=== PATIENT | female | born 1990 | race Caucasian/White ===

== ENCOUNTER → 2016-09-23 | Outpatient (CLI) | payer OTHER ==
[2016-09-23 08:59] LABS: CHOLESTEROL/HDL RATIO 2.6; THYROID STIMULATING HORMONE 0.758 uIu/ml (0.300-4.500)
== END | disposition home or self-care (01) ==
LOC: C.LAB 07:40
PROVIDERS: ATTEND Internal Medicine
DX: Z00.00 Encounter for general adult medical examination without abnormal findings (principal); F98.8 Other specified behavioral and emotional disorders with onset usually occurring in childhood and adolescence; F41.9 Anxiety disorder, unspecified

== ENCOUNTER → 2017-11-03 | Outpatient (CLI) | payer OTHER | END | disposition home or self-care (01) | LOC: C.LABSPEC 08:34 | PROVIDERS: ATTEND Nurse Practitioner | DX: Z13.220 Encounter for screening for lipoid disorders (principal); Z13.1 Encounter for screening for diabetes mellitus ==

== ENCOUNTER 2023-10-29 08:42 | Inpatient (IN) ==
--- NOTE | 2023-10-26 10:00 | Anesthesiology Consultation ---
Date of Service October 26, 2023 Assessment & Plan (1) Encounter for pre-operative examination: Infectious disease screening: Per assessment on 10/26/23: No known recent infectious disease contacts or current infectious disease symptoms. Chart Review Chart Review: entry level receptionist initiated History Surgery Operation Date: 10/29/23 08:50 Proposed Procedures p Section (Delivery of the Baby Through Abdominal Incision) - Sandra Navarrete MD Height/Weight Height: 5 ft 4 in Weight: 89.358 kg Allergies Allergy/AdvReac Type Severity Reaction Status Date / Time peanut Allergy Unknown Gastrointestinal Verified 10/26/23 09:16 Upset No Known Drug Allergies Allergy Verified 10/26/23 09:16 Medications Home Medications Medication Instructions Recorded Confirmed Last Taken valacyclovir 500 mg tablet 500 mg PO BID #60 tabs 10/04/23 10/26/23 Unknown (Valtrex) docosahexaenoic acid 300 mg capsule 0 mg PO DAILY 10/26/23 10/26/23 Unknown Past Medical History Medical History ADD (attention deficit disorder) No meds Breech presentation Reason for c/s per patient History of asthma Childhood "no issue for years" History of COVID-19 ~2021 Past Family History Family History Grandfather (Paternal) Myocardial infarction Grandfather (Maternal) Prostate cancer Denies family history of Ovarian cancer Breast cancer Colorectal cancer Past Surgical History Surgical History No history of previous surgery Social History Smoking Status: Never smoker Do You Dip or Chew Tobacco: No Hx Alcohol Use: Yes (hx social/none while ) Alcohol type: wine Hx Substance Use: No substance use type: does not use
[~2023-10-29 08:42] MED LIST: CITRIC ACID/SODIUM CITRATE 15 ML UDC PO SCH; DEXAMETHASONE SOD INJ 4 MG/ML VIAL ONE; KETOROLAC 30 MG/ML VIAL ONE; MoRPHine SULFATE PF 1 MG/ML 10 ML AMP/VIAL ONE; ONDANSETRON INJ 2 MG/ML 2 ML VIAL ONE; OXYTOCIN 10 UNITS/ML VIAL ONE; PHENYLEPHRINE 100MCG/ML 10ML SYR IV ONE; ePHEDrine sulfate 50 MG/5 ML SYR ONE; fentaNYL citrate PF 100 MCG/2 ML VIAL ONE
[2023-10-29] MEDS ORDERED: LACTATED RINGER'S 1,000 ML IV SCH ×3 (09:00→12:21)
--- NOTE | 2023-10-29 09:17 | History & Physical Report ---
Date of Service October 29, 2023 Assessment & Plan (1) delivery indicated due to breech presentation: Plan: - G1 at 39w(LMP based; periods regular) POG with Breech presentation with B -ve Non Rh-isoimmunized status; here for planned LSCS today. - Breech confirmed by [facility] todat morning as well - Vitals : Stable - FHT: Category 1 - Will need Rhogam after delivery. Admission and Anticipated Discharge Date Admission Date: October 29, 2023 History of Present Illness Chief Complaint: Primi at 39 WOG for planned LSCS Primary Care Provider: Charlotte Ansari MD G1 at 39w( LMP based; periods regular) POG with Breech presentation with B -ve Non Rh-isoimmunized status Here for planned LSCS today. Breech confirmed by [facility] today morning. Today: No active complains Vitals: Stable FHT: Category 1, not in labor Rh -ve Status( B neg): Needs Rhogam after delivery Received rhogam ANC twice: 04/02( Spotting), 08/18( regular ) Antibody: Neg(08/18); today's report pending GBS: Negative No past Surgery H/O ADHD, Childhood Asthma Allergies Allergy/AdvReac Type Severity Reaction Status Date / Time peanut Allergy Unknown Gastrointestinal Verified 10/28/23 14:42 Upset No Known Drug Allergies Allergy Verified 10/28/23 14:42 Home Medications Medication Instructions Recorded Confirmed Type valacyclovir 500 mg tablet 500 mg PO BID #60 tabs 10/04/23 10/28/23 Rx (Valtrex) docosahexaenoic acid 300 mg capsule 0 mg PO DAILY 10/26/23 10/28/23 History Patient History Medical History ADD (attention deficit disorder) No meds Breech presentation Reason for c/s per patient History of asthma Childhood "no issue for years" History of COVID- ~2021 Surgical History No history of previous surgery Family History Grandfather (Paternal) Myocardial infarction Grandfather (Maternal) Prostate cancer Denies family history of Ovarian cancer Breast cancer Colorectal cancer Social History Smoking Status: Never smoker Second Hand Exposure: No; Do You Dip or Chew Tobacco: No; Tobacco Cessation Education Requested by Patient: No Hx Alcohol Use: No Hx Substance Use: No Preferred Language: Palauan Communication Ability: Effective Tram Inspector Required: No Beliefs That Will Affect Care: None marital status: marital status details: Bryon Junior ([phone] Current Living Situation: Spouse Current Living Situation Comment: - Bryon current occupational status: employed 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 Denies SOB, difficulty breathing, chest pain, palpitations, and chest pressure. Denies breast pain. Denies dysuria. Denies headache or changes in vision. Physical Exam Physical Exam: General: Alert and oriented. No acute distress CV: Regular rate and rhythm. No murmurs. Respiratory: CTA bilaterally. No rhonchi, wheezes, or crackles. No increased work of breathing. Abdomen: Gravid Term size Uterus, Longitudinal, breech presentation, head lying towards right in RUQ. Lower extremities: Mild edema. No deep calf pain Results & Data Vital Signs (Past 12 Hours) Vital Signs Temp Pulse Resp BP 10/29/23 09:05 36.7 C 63 18 105/69
[2023-10-29 09:22] LABS: Hematocrit (blood only) 36.4 % (37.0-47.0); Hemoglobin 12.3 g/dl (12.0-16.0); Mean Corpuscular Hemoglobin 29.4 pg (25.0-34.0); Mean Corpuscular Hgb Conc 33.8 g/dL (32.0-36.0); Mean Corpuscular Volume 87.1 fL (80.0-100.0); Mean Platelet Volume 13.4 fL (9.4-12.4); Platelet Count 105 K/uL (130-400); RDW Coefficient of Variation 13.3 % (11.5-14.5); RDW Standard Deviation 41.1 fL (36.4-46.3); Red Blood Count 4.18 M/uL (4.20-5.40); White Blood Count 9.96 K/ul (4.8-10.8)
[2023-10-29] MEDS: LACTATED RINGER'S 1,000 ML IV SCH (09:48)
[2023-10-29] MEDS: ACETAMINOPHEN 500 MG TAB PO SCH (10:10)
[2023-10-29] MEDS: CITRIC ACID/SODIUM CITRATE 15 ML UDC PO SCH (10:10)
[2023-10-29] MEDS: ceFAZolin 2,000 MG in SYRINGE 0 ML IV SCH (11:06)
[2023-10-29] MEDS ORDERED: KETOROLAC 30 MG/ML VIAL IV PRN (11:25)
[2023-10-29] MEDS ORDERED: NALOXONE HCL 0.4 MG/1 ML VIAL/CARP IV PRN (11:25)
[2023-10-29] MEDS ORDERED: diphenhydrAMINE 50 MG/ML VIAL IV PRN (11:25)
[2023-10-29] MEDS ORDERED: NALOXONE HCL 0.08 MG in SYRINGE 1.8 ML IV PRN (11:25)
[2023-10-29] MEDS ORDERED: HYDROmorphone INJ 0.5 MG/0.5 ML SYR IV PRN (11:25)
[2023-10-29] MEDS ORDERED: MoRPHine SULFATE PF 1 MG/ML 10 ML AMP/VIAL INT SPINAL ONE (11:25)
[2023-10-29] MEDS ORDERED: ePHEDrine sulfate 50 MG/ML AMP IV PRN (11:25)
[2023-10-29] MEDS ORDERED: NALBUPHINE HCL 5 MG in SYRINGE 0 ML IV PRN (11:25)
[2023-10-29] MEDS ORDERED: LACTATED RINGER'S 500 ML IV PRN (11:25)
[2023-10-29] MEDS ORDERED: ONDANSETRON INJ 2 MG/ML 2 ML VIAL IV PRN (11:25)
[2023-10-29] MEDS ORDERED: NALOXONE HCL 1 MG in SODIUM CHLORIDE 0.9% 1,000 ML IV PRN (11:25)
[2023-10-29] MEDS ORDERED: PROMETHAZINE 6.25 MG/50.25 ML BAG IV PRN (11:25)
[2023-10-29] MEDS ORDERED: DC INTRASPINAL MORPHINE SCH (11:30)
[2023-10-29] MEDS ORDERED: NO NARCOTICS OR SEDATIVES SCH (11:30)
[2023-10-29] MEDS ORDERED: SODIUM CHLORIDE 0.9% 1,000 ML IV SCH (11:30)
--- NOTE | 2023-10-29 12:12 | Anesthesiology Progress Note ---
Date of Service October 29, 2023 Anesthesia Post Procedure Vital Signs Vital Signs: Temp Pulse Resp BP Pulse Ox 10/29/23 12:10 62 121/58 L 10/29/23 12:08 60 98 10/29/23 09:05 36.7 C 63 18 105/69 Transfer of Care Handoff Completed per policy Notes Mental Status: alert / awake / arousable and participated in evaluation Patient Amnestic to Procedure: No Nausea / Vomiting: adequately controlled Pain: adequately controlled Airway Patency, RR, SpO2: stable & adequate BP & HR: stable & adequate Hydration State: stable & adequate Neuraxial Anesthesia: was administered and sensory block is resolving Anesthetic Complications: no major complications apparent and Pt Satisfied with anesthetic care
--- NOTE | 2023-10-29 12:14 | Operative Report ---
Post Operative Report Pre & Post Diagnosis Operation Date: 10/29/23 10:30 Pre-Op Diagnosis: 1: Term 2. Breech Presentation Post-Op Diagnosis: Same I identified the patient and participated in the time-out.: Yes Procedure Operation Date: 10/29/23 10:30 Actual Procedures Primary low transverse Section Surgeon Sandra Navarrete MD Rn Labor And Delivery [facility] resident Dr. De La Rosa Quantitative Blood Loss (QBL) 851 Findings Consistent with Post-Op Diagnosis Specimens Placenta, cord blood Anesthesia Type Spinal Complications none Disposition Accompanied Patient To Recovery: Yes Disposition: L&D Description of Procedure The patient was placed operating table in the supine position with a leftward tilt. She was prepped and draped in standard sterile fashion. The anesthetic was tested and found to be adequate. A time-out was held, identifying correct patient, procedure, positioning and preoperative antibiotics. There were no concerns. A Pfannenstiel skin incision was made with a knife and taken down to the underlying layer of fascia. The fascia was incised in the midline with the knife and taken out laterally with scissors. The superior edge of the fascial incision was grasped, elevated and dissected off the underlying rectus both superiorly and inferiorly. The muscles were bluntly in the midline. The peritoneum was entered bluntly. The incision was then stretched. The bladder retractor was placed. The vesicouterine peritoneum was identified, entered with scissors and taken out laterally with scissors. The bladder flap was created digitally. A hysterotomy incision was created transversely in the lower uterine segment, final entry being accomplished in a blunt manner with the insulation cupola operator's fingers. Clear amniotic fluid was encountered. The insulation cupola operator's hand was used to elevate the breech to the hysterotomy. The baby was delivered using mild fundal pressure, the arms being swept in physiologic fashion and the head delivered maintaining neck flexion. The cord was clamped and cut and the infant was then handed off to the awaiting manufacturing sales representative. Cord blood was obtained. The placenta was Manually extracted. The uterus was exteriorized and cleared of all clot and debris with moistened laparotomy sponges. The hysterotomy incision was repaired in two layers, the first in a running locked layer, the second in an imbricating layer. The ovaries and tubes were seen to be normal bilaterally. The uterus was gently replaced in the abdomen, and the gutters were cleared of clot and debris. A final inspection of the hysterotomy revealed good hemostasis. The rectus muscles were allowed to reapproximate naturally. The fascia was then reapproximated with 1 Vicryl in a running nonlocked manner. The fascia was examined and found to be free of defect following closure. The subcutaneous tissue was copiously irrigated and reapproximated with 0-chromic, then the skin edges were closed with 4-0 monocryl in a subcuticular fashion. A dermabond dressing was applied. The crawford was found to be draining clear yellow urine at completion of the procedure. I attest to the content of the Intraoperative Record and any orders documented therein. Any exceptions are noted below. I attest to the content of the Intraoperative Record and any orders documented therein. Any exceptions are noted below.
[2023-10-29] MEDS ORDERED: MAGNESIUM HYDROXIDE SUSP 30 ML UDC PO PRN (12:21)
[2023-10-29] MEDS ORDERED: HYDROCORTISONE ACETATE 25 MG SUPP PR PRN (12:21)
[2023-10-29] MEDS ORDERED: SENNA 8.6 MG TAB PO PRN (12:21)
[2023-10-29] MEDS ORDERED: BENZOCAINE 20% SPRY 85 APPLN/85 GM CAN EXT PRN (12:21)
[2023-10-29] MEDS ORDERED: CALCIUM CARBONATE 500 MG CHEWABLE TAB PO PRN (12:21)
[2023-10-29] MEDS ORDERED: PROMETHAZINE 12.5 MG/50.5 ML BAG IV PRN (12:21)
[2023-10-29] MEDS ORDERED: IBUPROFEN 600 MG TAB PO SCH (13:00)
[2023-10-29] MEDS ORDERED: ACETAMINOPHEN 325 MG TAB PO SCH (13:00)
[2023-10-29] MEDS ORDERED: Nursing to Pharmacy Communication SCH (14:30)
[2023-10-29] MEDS: OXYTOCIN 30 UNITS/LR 1,003 ML IV SCH (14:39)
[2023-10-29] MEDS: SIMETHICONE 80 MG CHEW PO SCH (15:29)
[2023-10-29] MEDS: IBUPROFEN 600 MG TAB PO SCH (17:33)
[2023-10-29] MEDS: ACETAMINOPHEN 325 MG TAB PO SCH (17:34)
[2023-10-29] MEDS: DOCUSATE SODIUM 100 MG CAP PO SCH (20:46)
[2023-10-30] MEDS ORDERED: HYDROmorphone INJ 0.5 MG/0.5 ML SYR IV PRN (05:25)
[2023-10-30] MEDS ORDERED: ONDANSETRON INJ 2 MG/ML 2 ML VIAL IV PRN (05:25)
[2023-10-30] MEDS ORDERED: diphenhydrAMINE 50 MG/ML VIAL IV PRN (05:25)
[2023-10-30] MEDS ORDERED: diphenhydrAMINE Capsule 25 MG CAP PO PRN (05:25)
[2023-10-30] MEDS ORDERED: oxyCODONE HCL IR 5 MG TAB (IMMEDIATE RELEASE) PO PRN (05:25)
[2023-10-30] MEDS ORDERED: ACETAMINOPHEN 500 MG TAB PO SCH (06:00)
[2023-10-30] MEDS ORDERED: CITRIC ACID/SODIUM CITRATE 15 ML UDC PO SCH (06:00)
[2023-10-30] MEDS ORDERED: ceFAZolin 2000MG 2,000 MG/15 ML SYR IV SCH (06:00)
--- NOTE | 2023-10-30 06:33 | Obstetrical Progress Note ---
Date of Service October 30, 2023 Assessment & Plan (1) delivery indicated due to breech presentation: - S/P Planned C- section: 1st POD - Overall doing great; Vitals stable. - Needed straight cath after crawford's; 1100 ml urine; has't emptied after that. Need reassess in next few hours. - Wound site: N - Lochia: Mod - Breast feeding: No issue - Plan: Likely Dis tomorrow Subjective Patient is a 33 yo female P1 is POD #1st following delivery for breech at 39 weeks. She reports feeling well overall this morning. She has some abdominal cramping and pain well managed on analgesics. Voiding : Could not initially void after removing crawford's; straight cath done at 2:30; 1100 ml urine; has not felt like urination then after. Tolerating regular meals overnight and able to ambulate some. She has passed gas and no stool. Persistent lochia with some improvement this morning. Currently br feeding. Review of Systems Denies fever, chills, sweats. Denies SOB, difficulty breathing, chest pain, palpitations, and chest pressure. Denies breast pain. Denies dysuria. Denies headache or changes in vision. Physical Exam General: Alert and oriented. No acute distress. CV: Regular rate and rhythm. No murmurs. Respiratory: CTA bilaterally. No rhonchi, wheezes, or crackles. No increased work of breathing. Abdomen: Positive bowel sounds. Soft, nontender, and nondistended. Uterus: Fundus firm and palpable few cm below umbilicus. Well involuted. Surgical scar clean and healing well. Lower extremities: No LE edema. No deep calf pain. Results & Data Vital Signs (Past 12 Hours) Vital Signs Temp Pulse Resp BP Pulse Ox O2 Del Method 10/30/23 03:45 36.4 C L 65 18 100/67 99 Room Air 10/30/23 03:09 16 100 10/30/23 01:30 18 100 10/30/23 00:51 16 98 10/29/23 23:45 36.5 C 62 16 111/75 96 Room Air 10/29/23 22:48 16 98 10/29/23 21:36 16 100 10/29/23 20:58 18 100 10/29/23 19:50 18 98 10/29/23 19:50 37.1 C 66 18 112/70 98 Room Air
[2023-10-30 07:07] LABS: Basophils # (auto) 0.04 K/uL (0.00-0.20); Basophils % (auto) 0.3 %; Eosinophils # (auto) 0.06 K/uL (0.00-0.50); Eosinophils % (auto) 0.4 %; Hemoglobin 10.4 g/dl (12.0-16.0); Immature Granulocytes # (auto) 0.08 K/uL (0.01-0.20); Immature Granulocytes % (auto) 0.5 %; Lymphocytes # (auto) 3.77 K/uL (1.20-3.40); Lymphocytes % (auto) 24.4 %; Mean Corpuscular Hemoglobin 29.3 pg (25.0-34.0); Mean Corpuscular Hgb Conc 33.5 g/dL (32.0-36.0); Mean Corpuscular Volume 87.3 fL (80.0-100.0); Mean Platelet Volume 13.5 fL (9.4-12.4); Monocytes # (auto) 0.97 K/uL (0.11-0.59); Monocytes % (auto) 6.3 %; Neutrophils # (auto) 10.51 K/uL (1.40-6.50); Neutrophils % (auto) 68.1 %; Platelet Count 94 K/uL (130-400); Platelet Estimate Decreased (Normal); RDW Coefficient of Variation 13.5 % (11.5-14.5); RDW Standard Deviation 41.7 fL (36.4-46.3); Red Blood Count 3.55 M/uL (4.20-5.40); White Blood Count 15.43 K/ul (4.8-10.8)
[2023-10-30] MEDS: PRENATAL VITAMIN 1 TAB PO SCH (07:55)
[2023-10-30] MEDS: FERROUS SULFATE 325 MG TAB PO SCH (07:55)
[2023-10-30] MEDS ORDERED: DIPHTHER/TETAN/PERTUS Vaccine (Tdap, Adol/Adult) 0.5mL IM ONE (09:00)
[2023-10-30] MEDS ORDERED: DOCOSAHEXAENOIC ACID PO SCH (09:00)
[2023-10-31 06:29] LABS: Hematocrit (blood only) 30.6 % (37.0-47.0); Hemoglobin 10.2 g/dl (12.0-16.0)
--- NOTE | 2023-10-31 06:55 | Obstetrical Progress Note ---
Date of Service October 31, 2023 Assessment & Plan (1) care and examination: Plan stable, desires dc home, instructions reviewed. f/u 6 wk pp check. , rh neg, baby rh neg, no rhogam indicated, RI. discussed use of narcotic, checked on papdmp. pt desires 5 tabs sent. Subjective Ambulation: ambulating normally Voiding: no voiding problems Passing Gas:: Yes Diet Tolerance:: regular diet Lochia:: Small Feeding Type:: breast feeding no pain concerns. Constitutional: + as per Subjective / HPI Physical Exam Constitutional WD/WN, vitals as above Respiratory normal respiratory effort, lungs clear to auscultation Cardiovascular Rate/Rhythm: regular rate and regular rhythm Gastrointestinal (Abdomen) Inspection/Auscultation: abdomen normal to inspection and + abdominal surgical incision (c/d/i ) Percussion/Palpation: abdomen soft Fundus firm 2cm down Musculoskeletal nt calves no edema Neurologic grossly normal Psychiatric A+Ox3, euthymic affect Results & Data Vital Signs (Past 12 Hours) Vital Signs Temp Pulse Resp BP Pulse Ox O2 Del Method 10/31/23 00:10 98.1 F 78 16 116/80 97 Room Air 10/30/23 19:30 97.5 F L 72 18 109/75 99 Room Air
[2023-10-31 11:10] VITALS: RESP 18; TEMP 97.7; O2SAT 99
[2023-10-31 11:20] VITALS: BP 110/74; PULSE 78
[2023-10-31] MEDS ORDERED: bisacodyL 10 MG SUPP PR PRN (11:59)
[2023-10-31] MEDS ORDERED: ACETAMINOPHEN 325 MG TAB PO PRN (11:59)
[2023-10-31] MEDS ORDERED: IBUPROFEN 600 MG TAB PO PRN (11:59)
--- NOTE | 2023-11-02 08:47 | Discharge Summary ---
Date of Service November 02, 2023 Admission HPI Per Admitting Provider G1 at 39w( LMP based; periods regular) POG with Breech presentation with B -ve Non Rh-isoimmunized status Here for planned LSCS today. Breech confirmed by [facility] today morning. Today: No active complains Vitals: Stable FHT: Category 1, not in labor Rh -ve Status( B neg): Needs Rhogam after delivery Received rhogam ANC twice: 04/02( Spotting), 08/18( regular ) Antibody: Neg(08/18); today's report pending GBS: Negative No past Surgery H/O ADHD, Childhood Asthma Discharge Data Consultations 10/29/23 08:51 Consult Anesthesiology Stat Procedures Performed Operation Date: 10/29/23 10:30 Actual Procedures p Section (Delivery of the Baby Through Abdominal Incision) with the of a live male child at 1134. - Sandra Navarrete MD Hospital Course (1) care and examination: Plan stable, desires dc home, instructions reviewed. f/u 6 wk pp check. , rh neg, baby rh neg, no rhogam indicated, RI. discussed use of narcotic, checked on papdmp. pt desires 5 tabs sent. Coding Level of Care Code None Diagnoses care and examination Z39.2
== END 2023-10-31 15:00 | disposition home or self-care (01) | DRG 788 ==
LOC: 4S3 08:42 → EDSTATUS 10:20 → 4E2 14:58